=== PATIENT | male | born 1950 | race Asian ===

== ENCOUNTER 2020-08-14 11:25 | Outpatient (CLI) | payer MEDICARE, OTHER, SELFPAY ==
[2020-08-14 12:53] LABS: Vitamin D 25 Hydroxy 28.8 ng/mL
== END 2020-08-14 11:26 | disposition home or self-care (01) ==
LOC: ANHLAB 11:26
PROVIDERS: PCP Internal Medicine; Visit Provider Nurse Practitioner Family
DX: E55.9 Vitamin D deficiency, unspecified (principal)
CPT/HCPCS: 36415; 82306

== ENCOUNTER → 2020-08-21 12:27 | Outpatient (CLI) | payer MEDICARE, OTHER, SELFPAY ==
--- NOTE | ~2020-08-21 | MR_ITS ---
EXAMINATION: MR foot RT wo con DATE: 08/21/2020 13:33 INDICATION: Right foot pain. TECHNIQUE: Magnetic resonance imaging (MRI) of the right foot was performed without intravenous contr ast. Sequences included sagittal T1-weighted FSE and STIR FSE, long-axis PD-weighted FS FSE and PD-we ighted FSE, and short-axis PD-weighted FS FSE and T1-weighted FSE. COMPARISON: Right foot radiographs 08/14/2020 FINDINGS: Bone alignment is normal. No acute fracture. There is bone marrow edema in the heads of sec ond and third metatarsals. There is a healed fracture of neck of second metatarsal. Joint spaces are normal. Lisfranc ligament is intact. The flexor and extensor tendons are normal. There is diffuse sof t tissue edema in the foot. IMPRESSION: 1. Bone marrow edema in the heads of the second and third metatarsals, likely stress reaction. Reviewed, dictated and finalized at location A. CTOR RETIREMENT IMPRESSION: 1. Bone marrow edema in the heads of the second and third metatarsals, likely s tress reaction.
== END ==
PROVIDERS: PCP Internal Medicine; Visit Provider Nurse Practitioner Family
DX: M79.671 Pain in right foot (principal)
CPT/HCPCS: 73718